=== PATIENT | male | born 1965 | race Two or more races ===

== ENCOUNTER 2022-11-26 10:51 | Inpatient (IN) | payer OTHER ==
[~2022-11-26] VITALS: Ht 160 cm; Wt 74.8 kg
[2022-11-26 13:43] LABS: HEMATOCRIT 37.9 % (39.0-48.0); HEMOGLOBIN 13.1 g/dL (13-16.00); MEAN CELL VOLUME 85.1 fL (80.0-100.00); MEAN CORPUSCULAR HEMOGLOBIN 29.4 pg (27.00-32.0); MEAN CORPUSCULAR HGB CONC 34.5 g/dl (32.0-36.0); PLATELET COUNT 383 K/uL (150-450); RED BLOOD COUNT 4.46 M/uL (4.00-6.00); RED CELL DISTRIBUTION WIDTH 14.1 % (11.5-14.5)
[2022-11-26 14:03] LABS: CALCIUM 9.3 mg/dL (8.5-10.1); CREATININE SERUM 0.91 mg/dL (0.70-1.30); GFR 85.57; POTASSIUM 3.78 mEq/L (3.5-5.1)
[2022-11-26 14:35] LABS: URINE APPEARANCE Clear; URINE BILIRRUBIN Negative (NEGATIVE); URINE BLOOD Trace; URINE COLOR Yellow; URINE GLUCOSE Negative (NEGATIVE); URINE LEUKOCYTE Negative; URINE NITRATE Negative; URINE UROBILINOGEN 0.2 E.U./dl
[2022-11-26 15:11] LABS: URINE BACTERIA FEW; URINE EPITHELIAL CELLS 0-4 /HPF; URINE WBC 0-2 /hpf
[2022-11-26 15:12] LABS: URINE MUCUS SCANT; URINE PROTEIN 300 (NEGATIVE)
[2022-11-26 20:55] LABS: INR 1.2; PARTIAL THROMBOPLASTIN TIME 29.5 SECONDS (22.0-34.0); PROTHROMBIN TIME 12.4 SECONDS (9.0-11.5)
[2022-11-28 07:39] LABS: HEMATOCRIT 38.7 % (39.0-48.0); MEAN CELL VOLUME 86.2 fL (80.0-100.00); MEAN CORPUSCULAR HGB CONC 33.6 g/dl (32.0-36.0); PLATELET COUNT 406 K/uL (150-450); RED BLOOD COUNT 4.49 M/uL (4.00-6.00); RED CELL DISTRIBUTION WIDTH 13.8 % (11.5-14.5)
[2022-11-28 08:11] LABS: ALBUMIN 2.9 gm/dL (3.4-5.0); BILIRUBIN TOTAL 0.41 mg/dL (0.3-1.2); CALCIUM 8.7 mg/dL (8.5-10.1); CREATININE SERUM 0.86 mg/dL (0.70-1.30); GFR 91.34; GLOBULINA 4.3 G/DL (2.4-3.5); POTASSIUM 3.82 mEq/L (3.5-5.1); TOTAL PROTEIN 7.2 gm/dL (6.4-8.2)
[2022-11-28 09:02] LABS: C-REACTIVE PROTEIN 13.9 MG/DL (0.00-0.29)
[2022-11-29 08:51] LABS: HEMATOCRIT 37.7 % (39.0-48.0); HEMOGLOBIN 12.3 g/dL (13-16.00); MEAN CELL VOLUME 85.9 fL (80.0-100.00); MEAN CORPUSCULAR HEMOGLOBIN 27.9 pg (27.00-32.0); MEAN CORPUSCULAR HGB CONC 32.5 g/dl (32.0-36.0); PLATELET COUNT 411 K/uL (150-450); RED BLOOD COUNT 4.39 M/uL (4.00-6.00); RED CELL DISTRIBUTION WIDTH 13.7 % (11.5-14.5)
[2022-11-29 16:27] LABS: ALBUMIN 2.6 gm/dL (3.4-5.0); BILIRUBIN TOTAL 0.25 mg/dL (0.3-1.2); CALCIUM 8.6 mg/dL (8.5-10.1); CREATININE SERUM 0.87 mg/dL (0.70-1.30); GFR 90.13; GLOBULINA 4.7 G/DL (2.4-3.5); POTASSIUM 3.37 mEq/L (3.5-5.1); TOTAL PROTEIN 7.3 gm/dL (6.4-8.2)
[2022-11-29 16:33] LABS: C-REACTIVE PROTEIN 15.2 MG/DL (0.00-0.29)
[2022-11-30 06:43] LABS: HEMATOCRIT 33.7 % (39.0-48.0); HEMOGLOBIN 11.6 g/dL (13-16.00); MEAN CELL VOLUME 83.9 fL (80.0-100.00); MEAN CORPUSCULAR HGB CONC 34.6 g/dl (32.0-36.0); PLATELET COUNT 414 K/uL (150-450); RED BLOOD COUNT 4.02 M/uL (4.00-6.00)
[2022-12-02 06:23] LABS: HEMOGLOBIN 11.1 g/dL (13-16.00); MEAN CELL VOLUME 85.8 fL (80.0-100.00); MEAN CORPUSCULAR HEMOGLOBIN 28.8 pg (27.00-32.0); MEAN CORPUSCULAR HGB CONC 33.6 g/dl (32.0-36.0); PLATELET COUNT 487 K/uL (150-450); RED BLOOD COUNT 3.85 M/uL (4.00-6.00); RED CELL DISTRIBUTION WIDTH 13.8 % (11.5-14.5)
[2022-12-02 07:07] LABS: CALCIUM 8.5 mg/dL (8.5-10.1); CREATININE SERUM 0.92 mg/dL (0.70-1.30); GFR 84.5
[2022-12-02 07:08] LABS: ERYTHROCYTE SEDIMENTATION RATE 89 mm/hr
[2022-12-02 07:59] LABS: C-REACTIVE PROTEIN 8.89 MG/DL (0.00-0.29); POTASSIUM 2.94 mEq/L (3.5-5.1)
[2022-12-02] MEDS ORDERED: TAMS0.4C PO (18:04)
[2022-12-02] MEDS ORDERED: LEVOFLOXACIN750 MG PO (18:04)
[2022-12-02] MEDS ORDERED: INTESTINEX680 M2 PO (18:04)
[2022-12-02] MEDS ORDERED: FAMOTIDINE20 MG PO (18:04)
== END 2022-12-02 19:26 | disposition home or self-care (01) | DRG 728 ==
LOC: ER 10:51 → MEDI 20:33
PROVIDERS: Emergency Medicine; General Practice; ADMIT Internal Medicine; ATTEND Internal Medicine
PROC: BW21ZZZ Computerized Tomography (CT Scan) of Abdomen and Pelvis (ICD-10-PCS; principal; 2022-11-26)
DX: N41.0 Acute prostatitis (principal); N13.30 Unspecified hydronephrosis; N13.8 Other obstructive and reflux uropathy; N32.0 Bladder-neck obstruction; N40.1 Benign prostatic hyperplasia with lower urinary tract symptoms

== ENCOUNTER 2022-12-05 18:21 | Emergency (ER) | payer OTHER ==
[~2022-12-05] VITALS: Ht 170.2 cm; Wt 70.8 kg
[~2022-12-05 18:21] MED LIST: FAMOTIDINE20 MG PO; INTESTINEX680 M2 PO; LEVOFLOXACIN750 MG PO; TAMS0.4C PO
[2022-12-05 20:34] LABS: URINE APPEARANCE Clear; URINE BILIRRUBIN Negative (NEGATIVE); URINE BLOOD Negative; URINE COLOR Yellow; URINE GLUCOSE Negative (NEGATIVE); URINE LEUKOCYTE Negative; URINE NITRATE Negative; URINE PROTEIN 30 (NEGATIVE); URINE UROBILINOGEN 0.2 E.U./dl
[2022-12-05 20:37] LABS: URINE BACTERIA 7.5 uL (0.0-1933)
[2022-12-05] MEDS ORDERED: NAPROXEN500 MG PO (21:10)
== END 2022-12-05 21:23 | disposition home or self-care (01) ==
LOC: ER 18:21
PROVIDERS: General Practice
DX: K59.00 Constipation, unspecified (principal); N40.0 Benign prostatic hyperplasia without lower urinary tract symptoms; I10 Essential (primary) hypertension; Z88.6 Allergy status to analgesic agent

== ENCOUNTER 2024-04-24 23:00 | Emergency (ER) | payer OTHER ==
[~2024-04-24] VITALS: Ht 160 cm; Wt 67.6 kg
[~2024-04-24 23:00] MED LIST changes: +NAPROXEN500 MG PO
[2024-04-25] MEDS ORDERED: TAMSULOSIN HCL 0.4 MG CAP PO STA (01:14)
[2024-04-25] MEDS ORDERED: TAMSULOSIN HCL 0.4 MG CAP PO ONE (01:16)
[2024-04-25 01:58] LABS: CALCIUM 9.4 mg/dL (8.5-10.1); CREATININE SERUM 1.8 mg/dL (0.70-1.30); GFR 38.81; POTASSIUM 4.31 mEq/L (3.5-5.1)
[2024-04-25 02:00] LABS: HEMATOCRIT 30.1 % (39.0-48.0); HEMOGLOBIN 9.7 g/dL (13-16.00); MEAN CELL VOLUME 82.8 fL (80.0-100.00); MEAN CORPUSCULAR HEMOGLOBIN 26.7 pg (27.00-32.0); MEAN CORPUSCULAR HGB CONC 32.3 g/dl (32.0-36.0); PLATELET COUNT 494 K/uL (150-450); RED BLOOD COUNT 3.63 M/uL (4.00-6.00)
[2024-04-25 02:07] LABS: URINE APPEARANCE Clear; URINE BILIRRUBIN Negative (NEGATIVE); URINE BLOOD Large; URINE COLOR Yellow; URINE GLUCOSE Negative (NEGATIVE); URINE KETONE Negative (NEGATIVE); URINE LEUKOCYTE Moderate; URINE NITRATE Negative; URINE UROBILINOGEN 0.2 E.U./dl
[2024-04-25 02:11] LABS: URINE BACTERIA 151.7 uL (0.0-1933); URINE EPITHELIAL CELLS 10.1 uL (0.0-38.8); URINE RBC 24.8 uL (0.0-20.8); URINE WBC 131.7 uL (0.0-23.2)
[2024-04-25 02:48] LABS: URINE CAST 0.14 uL (0.0-1.40); URINE PROTEIN 300 (NEGATIVE)
== END 2024-04-25 04:13 | disposition home or self-care (01) ==
LOC: ER 23:03
DX: N13.9 Obstructive and reflux uropathy, unspecified (principal); Z88.6 Allergy status to analgesic agent

== ENCOUNTER 2024-05-17 07:59 | Inpatient (IN) | payer OTHER ==
[~2024-05-17] VITALS: Ht 167.6 cm; Wt 59.0 kg
--- NOTE | 2024-05-17 08:32 | NUR ---
PACIENTE ALERTA Y ORIENTADO X3, REFIERE QUE EN LA MADRUGADA Y EN LA MANANA HABERSE CAIDO A CAUSA DE MAREOS. RECUERDA ELVENTO ANTES DE LA CAIDA AL LEVANTARSE POSTERIOR AL EVENTO REFIERE TENER PERDIDA DE MEMORIA. SE OBSERVA TRAUMA EN [facility]. PTE REFIERE SENTIRSE DEBIL. SE MIDE S/V Y SE UBICA
--- NOTE | 2024-05-17 09:05 | NUR ---
PACIENTE EVALUADO POR QUIEN ORDENA TRATAMIENTO MEDICO, SE LE ORIENTA A PACIENTE SOBRE EL MISMO Y REFIERE ENTENDER, SE LE COLECTAN MUESTRAS Y SE CANALIZA BAJO MEDIDAS ASEPTICAS. PENDIENTE ESTUDIO DE CT
[2024-05-17] MEDS ORDERED: HYDROGEN PEROXIDE 473 ML BOTTLE TOP ONE (09:07)
[2024-05-17] MEDS ORDERED: POVIDONE-IODINE 118 ML BOTT TOP ONE (09:08)
[2024-05-17 09:14] LABS: HEMATOCRIT 24.8 % (39.0-48.0); MEAN CELL VOLUME 80.8 fL (80.0-100.00); MEAN CORPUSCULAR HGB CONC 33.5 g/dl (32.0-36.0); PLATELET COUNT 616 K/uL (150-450); RED BLOOD COUNT 3.06 M/uL (4.00-6.00); RED CELL DISTRIBUTION WIDTH 18.8 % (11.5-14.5)
[2024-05-17 09:15] LABS: HEMOGLOBIN 8.3 g/dL (13-16.00); MEAN CORPUSCULAR HEMOGLOBIN 27.1 pg (27.00-32.0)
[2024-05-17] MEDS ORDERED: LIDOCAINE HCL 1% 10ML VIAL ONE (09:16)
[2024-05-17 09:56] LABS: ALBUMIN 2.6 gm/dL (3.4-5.0); BILIRUBIN TOTAL 0.28 mg/dL (0.3-1.2); CREATININE SERUM 2.65 mg/dL (0.70-1.30); GFR 24.84; GLOBULINA 5.3 G/DL (2.4-3.5); POTASSIUM 3.91 mEq/L (3.5-5.1); TOTAL PROTEIN 7.9 gm/dL (6.4-8.2)
[2024-05-17] MEDS ORDERED: FUROsemide 20 MG/2 ML VIAL IV SCH (11:00)
[2024-05-17 11:04] LABS: INR 1.38; PARTIAL THROMBOPLASTIN TIME 30.8 SECONDS (22.0-34.0); PROTHROMBIN TIME 14.7 SECONDS (9.0-11.5)
--- NOTE | 2024-05-17 11:18 | NUR ---
SE REALIZA ORIENTACION A PTE, SOBRE TRANSFUSION DE MAGAN, FIRMAN EL CONSENTIMIENTO, SE ANEJA A RECORD, SE REALIZA EXTRACCION DE MUESTRAS DE TUBO PILOTOS, SE LLEVA A BANCO DE MAGAN, SE CONFIRMA PTE NO TIENE RECORD. SE REALIZA EXTRACCION DE TERCER TUBO ELGIN Y LLEVA A BANCO DE MAGAN.
[2024-05-17 11:34] LABS: URINE APPEARANCE Turbid; URINE BILIRRUBIN Negative (NEGATIVE); URINE BLOOD Moderate; URINE COLOR Yellow; URINE GLUCOSE Negative (NEGATIVE); URINE KETONE Negative (NEGATIVE); URINE LEUKOCYTE Large; URINE NITRATE Negative; URINE UROBILINOGEN 0.2 E.U./dl
[2024-05-17 11:41] LABS: URINE BACTERIA 2200.6 uL (0.0-1933); URINE CAST 4.71 uL (0.0-1.40); URINE EPITHELIAL CELLS 16.9 uL (0.0-38.8); URINE RBC 9.1 uL (0.0-20.8)
[2024-05-17 11:52] LABS: URINE PROTEIN 100 (NEGATIVE); URINE WBC > 5548.3 uL (0.0-23.2)
[2024-05-17] MEDS ORDERED: CIPROFLOXACIN HCL 500 MG TABLET PO ONE (13:45)
[2024-05-17] MEDS ORDERED: 0.9 % SODIUM CHLORIDE 1,000 ML IV SCH ×2 (15:00→17:00)
--- NOTE | 2024-05-17 15:26 | NUR ---
PTE ALERTA Y ORIENTADO X 3 ESFERAS EN COMPANIA DE FAMILIAR,EN CHYNA CON BARANDAS ELEVADAS,AREA DE VENOPUNCION PATENTE Y KAYLAH DE EDEMA CON FLUIDOS DE EDEMA.PENDIENTE A TRANSFUNDIR 2 UNIDADES DE PRBC DISPONIBLES.
[2024-05-17] MEDS ORDERED: MEROPENEM 500 MG/VIAL VIAL IV SCH (17:15)
[2024-05-17] MEDS ORDERED: FINASTERIDE 5 MG TABLET PO SCH (17:18)
[2024-05-17] MEDS ORDERED: TAMSULOSIN HCL 0.4 MG CAP PO ONE (17:30)
[2024-05-17 20:21] VITALS: BP 106/59; O2SAT 100
[2024-05-18 04:31] LABS: HEMOGLOBIN 10.3 g/dL (13-16.00); MEAN CELL VOLUME 80.5 fL (80.0-100.00); MEAN CORPUSCULAR HEMOGLOBIN 26.8 pg (27.00-32.0); MEAN CORPUSCULAR HGB CONC 33.2 g/dl (32.0-36.0); PLATELET COUNT 540 K/uL (150-450); RED BLOOD COUNT 3.85 M/uL (4.00-6.00); RED CELL DISTRIBUTION WIDTH 17.7 % (11.5-14.5)
[2024-05-18 04:58] LABS: C-REACTIVE PROTEIN 14.3 MG/DL (0.00-0.29)
[2024-05-18 05:56] LABS: CALCIUM 8.8 mg/dL (8.5-10.1); CREATININE SERUM 2.21 mg/dL (0.70-1.30); GFR 30.63; POTASSIUM 3.84 mEq/L (3.5-5.1)
[2024-05-18 06:04] VITALS: BP 108/69
[2024-05-18 08:34] VITALS: BP 112/65; O2SAT 98
[2024-05-18] MEDS ORDERED: IRON FUM,PS/FOLIC/BCOMP,C NO.9 1 CAP CAPSULE PO SCH (09:00)
[2024-05-18] MEDS ORDERED: FAMOTIDINE/PF 20 MG in 0.9 % SODIUM CHLORIDE 8 ML IV PUSH SCH (09:00)
[2024-05-18] MEDS ORDERED: TAMSULOSIN HCL 0.4 MG CAP PO SCH (09:00)
[2024-05-18 17:29] VITALS: BP 117/69; O2SAT 100
[2024-05-19 01:09] VITALS: BP 101/60; O2SAT 98
[2024-05-19 08:16] VITALS: BP 111/74
[2024-05-19] MEDS ORDERED: Cyanocobalamin/Mecobalamin 1 TAB.SL SL NR (11:30)
[2024-05-19] MEDS ORDERED: SOD FERRIC GLUC COMPLX/SUCROSE 62.5 MG in 0.9 % SODIUM CHLORIDE 50 ML IV SCH (12:00)
[2024-05-19] MEDS ORDERED: LACTOBACILLUS ACIDOPHILUS 1 CAP CAP PO SCH (17:00)
[2024-05-19 18:01] LABS: FERRITIN 242.7 NG/ML (26-388)
[2024-05-19 18:59] VITALS: BP 125/75
[2024-05-20 00:40] VITALS: BP 110/71; O2SAT 95
[2024-05-20 07:19] LABS: HEMATOCRIT 31.4 % (39.0-48.0); HEMOGLOBIN 10.5 g/dL (13-16.00); MEAN CELL VOLUME 80.3 fL (80.0-100.00); MEAN CORPUSCULAR HEMOGLOBIN 26.9 pg (27.00-32.0); MEAN CORPUSCULAR HGB CONC 33.5 g/dl (32.0-36.0); PLATELET COUNT 593 K/uL (150-450); RED BLOOD COUNT 3.91 M/uL (4.00-6.00); RED CELL DISTRIBUTION WIDTH 17.9 % (11.5-14.5)
[2024-05-20 07:51] LABS: ERYTHROCYTE SEDIMENTATION RATE 121 mm/hr
[2024-05-20 07:52] LABS: ALBUMIN 2.4 gm/dL (3.4-5.0); BILIRUBIN TOTAL 0.22 mg/dL (0.3-1.2); CALCIUM 8.5 mg/dL (8.5-10.1); CREATININE SERUM 1.92 mg/dL (0.70-1.30); GFR 36.03; GLOBULINA 4.3 G/DL (2.4-3.5); POTASSIUM 4.09 mEq/L (3.5-5.1); TOTAL PROTEIN 6.7 gm/dL (6.4-8.2)
[2024-05-20 08:02] LABS: C-REACTIVE PROTEIN 8.56 MG/DL (0.00-0.29)
[2024-05-20 09:00] VITALS: BP 109/66
[2024-05-20] MEDS ORDERED: Cyanocobalamin/Mecobalamin 1 TAB.SL SL SCH (09:00)
[2024-05-20 16:54] VITALS: BP 122/82; O2SAT 97
[2024-05-21 01:44] VITALS: BP 122/69; O2SAT 97
[2024-05-21 08:56] VITALS: BP 117/75
[2024-05-21] MEDS ORDERED: 0.9 % SODIUM CHLORIDE 10 ML VIAL IJ ONE (14:00)
[2024-05-21 17:25] VITALS: BP 127/74; O2SAT 98
[2024-05-22 00:27] VITALS: BP 123/76; O2SAT 98
[2024-05-22 06:30] LABS: HEMATOCRIT 32.1 % (39.0-48.0); HEMOGLOBIN 10.8 g/dL (13-16.00); MEAN CORPUSCULAR HEMOGLOBIN 27.2 pg (27.00-32.0); MEAN CORPUSCULAR HGB CONC 33.6 g/dl (32.0-36.0); PLATELET COUNT 633 K/uL (150-450); RED BLOOD COUNT 3.96 M/uL (4.00-6.00); RED CELL DISTRIBUTION WIDTH 17.9 % (11.5-14.5)
[2024-05-22 06:53] LABS: ERYTHROCYTE SEDIMENTATION RATE > 130 mm/hr
[2024-05-22 07:00] LABS: ALBUMIN 2.5 gm/dL (3.4-5.0); BILIRUBIN TOTAL 0.29 mg/dL (0.3-1.2); CREATININE SERUM 1.69 mg/dL (0.70-1.30); GFR 41.74; GLOBULINA 4.7 G/DL (2.4-3.5); POTASSIUM 4.85 mEq/L (3.5-5.1); TOTAL PROTEIN 7.2 gm/dL (6.4-8.2)
[2024-05-22 07:10] LABS: C-REACTIVE PROTEIN 8.89 MG/DL (0.00-0.29)
[2024-05-22 08:04] VITALS: BP 113/74
[2024-05-22 11:58] LABS: FOLIC ACID > 20.00 ng/ml (4.78-20)
[2024-05-22 16:39] VITALS: BP 112/76; O2SAT 97
[2024-05-22] MEDS ORDERED: MEROPENEM 500 MG/VIAL VIAL IV SCH (17:00)
[2024-05-23] VITALS: BP 114/78; O2SAT 97
[2024-05-23 08:05] VITALS: BP 109/72
[2024-05-23 13:09] LABS: hgb a 97.5 % (96.4-98.8); hgb a2 2.5 % (1.8-3.2); hgb f 0 % (0.0-2.0); hgb s 0 % (0.0)
[2024-05-23 16:13] VITALS: BP 103/65; O2SAT 98
[2024-05-24 02:38] VITALS: BP 118/80; O2SAT 97
[2024-05-24 06:15] LABS: ALBUMIN 2.4 gm/dL (3.4-5.0); BILIRUBIN TOTAL 0.16 mg/dL (0.3-1.2); CALCIUM 9.3 mg/dL (8.5-10.1); CREATININE SERUM 1.74 mg/dL (0.70-1.30); GFR 40.36; GLOBULINA 4.9 G/DL (2.4-3.5); POTASSIUM 4.98 mEq/L (3.5-5.1); TOTAL PROTEIN 7.3 gm/dL (6.4-8.2)
[2024-05-24 07:03] LABS: PROSTATIC SPECIFIC ANTIGEN 26.9 NG/ML (0.010-4.00)
[2024-05-24 08:57] VITALS: BP 115/75
[2024-05-24] MEDS ORDERED: FAMOtidine 20 MG TABLET PO SCH (09:00)
[2024-05-24 16:54] VITALS: BP 129/57; O2SAT 100
[2024-05-24] MEDS ORDERED: VITAMIN B COMPLEX 1 EACH PO SCH (17:00)
[2024-05-25 01:00] VITALS: BP 125/78; O2SAT 97
[2024-05-25 05:05] LABS: g6pd quant 287 (127-427); rbc 4.15 x10E6/uL (4.14-5.80)
[2024-05-25 08:38] VITALS: BP 162/72
[2024-05-25 17:59] VITALS: BP 140/90
[2024-05-26 02:25] VITALS: BP 134/82; O2SAT 96
[2024-05-26 10:55] VITALS: BP 133/66
[2024-05-26] MEDS ORDERED: FAMOTIDINE20 MG PO (14:55)
[2024-05-26] MEDS ORDERED: FINASTERIDE5 MG PO (14:55)
[2024-05-26] MEDS ORDERED: INTESTINEX680 M1 PO (14:55)
[2024-05-26] MEDS ORDERED: INTEGRA PLUS C1 EACH PO (14:55)
[2024-05-26] MEDS ORDERED: Neurin-Sl Tablet Sl SL (14:55)
[2024-05-26] MEDS ORDERED: TAMS0.4C PO (14:55)
== END 2024-05-26 17:49 | disposition home or self-care (01) | DRG 812 ==
LOC: ER 07:59 → MEDI 17:36
PROVIDERS: General Practice; Internal Medicine Hematology & Oncology; ADMIT Internal Medicine; ATTEND Internal Medicine
PROC: 30233N1 Transfusion of Nonautologous Red Blood Cells into Peripheral Vein, Percutaneous Approach (ICD-10-PCS; principal; 2024-05-17)
PROC: B020ZZZ Computerized Tomography (CT Scan) of Brain (ICD-10-PCS; 2024-05-17)
PROC: BW21ZZZ Computerized Tomography (CT Scan) of Abdomen and Pelvis (ICD-10-PCS; 2024-05-17)
PROC: B246ZZZ Ultrasonography of Right and Left Heart (ICD-10-PCS; 2024-05-17)
PROC: B54NZZZ Ultrasonography of Left Upper Extremity Veins (ICD-10-PCS; 2024-05-22)
PROC: 02HV33Z Insertion of Infusion Device into Superior Vena Cava, Percutaneous Approach (ICD-10-PCS; 2024-05-24)
DX: D50.0 Iron deficiency anemia secondary to blood loss (chronic) (principal); N17.9 Acute kidney failure, unspecified; N39.0 Urinary tract infection, site not specified; N13.8 Other obstructive and reflux uropathy; I12.0 Hypertensive chronic kidney disease with stage 5 chronic kidney disease or end stage renal disease; N18.5 Chronic kidney disease, stage 5; T80.1XXA Vascular complications following infusion, transfusion and therapeutic injection, initial encounter; I80.8 Phlebitis and thrombophlebitis of other sites; N41.1 Chronic prostatitis; D64.89 Other specified anemias; D63.1 Anemia in chronic kidney disease; S01.01XA Laceration without foreign body of scalp, initial encounter; R55 Syncope and collapse; N40.1 Benign prostatic hyperplasia with lower urinary tract symptoms; R33.8 Other retention of urine; R31.0 Gross hematuria; Z88.6 Allergy status to analgesic agent; W18.09XA Striking against other object with subsequent fall, initial encounter; Y92.9 Unspecified place or not applicable; Y65.8 Other specified misadventures during surgical and medical care

== ENCOUNTER 2024-09-10 04:08 | Emergency (ER) | payer OTHER ==
[~2024-09-10] VITALS: Ht 160 cm; Wt 59.9 kg
[~2024-09-10 04:08] MED LIST changes: +FINASTERIDE5 MG PO; +INTEGRA PLUS C1 EACH PO; +INTESTINEX680 M1 PO; +Neurin-Sl Tablet Sl SL
[2024-09-10] MEDS ORDERED: KETOROLAC TROMETHAMINE 30 MG VIAL IV STA (04:48)
[2024-09-10 05:47] LABS: URINE APPEARANCE Turbid; URINE BILIRRUBIN Negative (NEGATIVE); URINE BLOOD Large; URINE COLOR Yellow; URINE GLUCOSE Negative (NEGATIVE); URINE KETONE Negative (NEGATIVE); URINE LEUKOCYTE Large; URINE NITRATE Negative; URINE UROBILINOGEN 0.2 E.U./dl
[2024-09-10 05:51] LABS: URINE EPITHELIAL CELLS 39.3 uL (0.0-38.8); URINE RBC 391.5 uL (0.0-20.8)
[2024-09-10 05:52] LABS: URINE PROTEIN 300 (NEGATIVE); URINE WBC > 5548.3 uL (0.0-23.2)
[2024-09-10 05:52] LABS: BASO % 0.5 % (0.1-1.2); EOS # 0.22 (0.04-0.54); EOS % 1.7 % (0.7-7.0); LYMPH # 2.04 (1.18-3.74); LYMPH % 15.4 % (19.3-53.1); MEAN PLATELET VOLUME 10.20 fl (9.4-12.4); MONO # 0.82 (0.24-0.82); MONO % 6.2 % (4.7-12.5); NEUT # 10.03 (1.56-6.13); NEUT % 75.9 % (34.0-71.1); RED CELL DISTRIBUTION WIDTH 14.8 % (11.6-14.4)
[2024-09-10 05:53] LABS: TYPE CELLS SQUAMOUS; URINE BACTERIA > 9821.5 uL (0.0-1933); URINE CAST 1.02 uL (0.0-1.40)
[2024-09-10] MEDS ORDERED: CIPROFLOXACIN IN 5 % DEXTROSE 400 MG/200 ML PIGGYBAG IV STA (05:54)
[2024-09-10 06:09] LABS: BUN CREA RATIO 16.0 (7.0-25.0); CREATININE SERUM 1.61 mg/dL (0.70-1.30); GFR 43.99; GLUCOSE FASTING 115.0 mg/dL (65-100); OSMOLALITY SERUM 283.0 MOSM/KG (275-295)
[2024-09-10 06:14] LABS: PROSTATIC SPECIFIC ANTIGEN 17.2 NG/ML (0.010-4.00)
== END 2024-09-10 07:52 | disposition home or self-care (01) ==
LOC: ER 04:15
DX: R30.0 Dysuria (principal); K30 Functional dyspepsia; Z88.8 Allergy status to other drugs, medicaments and biological substances

== ENCOUNTER 2024-09-11 20:07 | Emergency (ER) | payer OTHER ==
[~2024-09-11] VITALS: Ht 160 cm; Wt 59.9 kg
[2024-09-11] MEDS ORDERED: TAMSULOSIN HCL 0.4 MG CAP PO ONE (21:30)
[2024-09-11 22:19] LABS: BASO % 0.5 % (0.1-1.2); EOS # 0.37 (0.04-0.54); EOS % 3.7 % (0.7-7.0); LYMPH # 2.83 (1.18-3.74); LYMPH % 28.0 % (19.3-53.1); MEAN PLATELET VOLUME 10.10 fl (9.4-12.4); MONO # 0.89 (0.24-0.82); MONO % 8.8 % (4.7-12.5); NEUT # 5.93 (1.56-6.13); NEUT % 58.6 % (34.0-71.1); RED CELL DISTRIBUTION WIDTH 14.7 % (11.6-14.4)
[2024-09-11 22:39] LABS: ALT/SGPT 27.0 U/L (12-78); AST/SGOT 39.0 U/L (15-37); BILIRUBIN TOTAL 0.48 mg/dL (0.3-1.2); BUN CREA RATIO 14.0 (7.0-25.0); CREATININE SERUM 1.68 mg/dL (0.70-1.30); GFR 41.88; GLOBULINA 4.9 G/DL (2.4-3.5); GLUCOSE FASTING 100.0 mg/dL (65-100); OSMOLALITY SERUM 279.0 MOSM/KG (275-295)
[2024-09-11 23:19] LABS: URINE APPEARANCE Clear; URINE BILIRRUBIN Negative (NEGATIVE); URINE BLOOD Large; URINE COLOR Dark Yellow; URINE GLUCOSE Negative (NEGATIVE); URINE KETONE Negative (NEGATIVE); URINE LEUKOCYTE Moderate; URINE NITRATE Negative; URINE PROTEIN 30 (NEGATIVE); URINE UROBILINOGEN 0.2 E.U./dl
[2024-09-11 23:24] LABS: URINE BACTERIA 118.7 uL (0.0-1933); URINE EPITHELIAL CELLS 13.9 uL (0.0-38.8); URINE RBC 5.5 uL (0.0-20.8); URINE WBC 349.1 uL (0.0-23.2)
[2024-09-11 23:38] LABS: URINE CAST 1.31 uL (0.0-1.40)
== END 2024-09-11 23:41 | disposition home or self-care (01) ==
LOC: ER 20:07
PROVIDERS: General Practice
DX: R33.8 Other retention of urine (principal); I10 Essential (primary) hypertension; Z88.6 Allergy status to analgesic agent